=== PATIENT | male | born 1935 | race Caucasian/White ===

== ENCOUNTER 2018-08-30 10:26 | Observation (INO) | payer OTHER ==
[~2018-08-30] VITALS: Ht 165.1 cm; Wt 66.2 kg
[~2018-08-30 10:26] MED LIST: ADULT LOW DOSE81 MG PO; AMLODIPINE BESYL5 MG PO; APAP500 PO; B-122500 MCG PO; CALCIUM 600 +1 EAC1 PO; COLACE100 MG PO; FLOMAX0.4 MG PO; HYDROCODON-ACE1 EAC8 PO; IRBESARTAN-HCT1 EACH PO; IRON325 PO; MUCINEX TA600 MG/TA2 PO; MUCINEX600 MG PO; MULTIVITAMINS PO; PREDNISONE 10 M10 MG PO; PREDNISONE 5 MG5 M1 PO; PROAIR HFA8.5 GM INH; PROMETHAZI6.25 MG/2 PO; PROSCAR 5MG TABL5 MG PO; SIMVASTATIN20 MG PO; SINGULAIR 10 MG10 M1 PO; SYMBICORT160 MCG/4. INH; TAMIFLU PO; VITAMINC500 PO
[2018-08-30] MEDS ORDERED: COMBIVENT RESPIM4 GM INH (11:09)
[2018-08-30] MEDS ORDERED: FLOVENT HFA 4444 MCG INH (11:10)
[2018-08-30] MEDS ORDERED: VENTOLIN HFA 1818 GM INH (11:11)
[2018-08-30] MEDS ORDERED: OXYBUTYNIN 5 MG5 M2 PO (11:12)
[2018-08-30 11:14] VITALS: BP 149/45
[2018-08-30 11:14] LABS: ABSOLUTE NEUTROPHILS 3.4 thou/uL (1.4-8.2); BASOPHILS 0.7 % (0.0-2.0); EOSINOPHILS 0.9 % (0.0-3.0); HEMATOCRIT 30.6 % (42.0-52.0); HEMOGLOBIN 10.4 gm/dL (14.0-18.0); LYMPHOCYTES 21.2 % (24.0-44.0); MCH 30.1 pg (26.0-34.0); MCHC 33.9 g/dL (28.0-37.0); MCV 88.7 fL (80.0-100.0); POLYS 66.2 % (36.0-66.0); RBC 3.45 mil/uL (4.50-6.00); RDW 14.1 % (10.5-14.5); WBC 5.2 thou/uL (4.0-11.0)
[2018-08-30 11:22] LABS: CALCIUM 9.6 mg/dL (8.5-10.1); CREATININE 1.7 mg/dL (0.7-1.3); POTASSIUM 5.1 mmol/L (3.5-5.1)
[2018-08-30 11:27] LABS: APTT 27.3 Seconds (24.5-32.8); PROTIME 10.7 Seconds (9.3-11.4)
[2018-08-30 11:28] LABS: ALBUMIN 3.5 g/dL (3.4-5.0); TOTAL BILIRUBIN 0.3 mg/dL (<0.1-1.0); TOTAL PROTEIN 6.9 g/dL (6.4-8.2)
[2018-08-30 11:46] LABS: PLATELET COUNT 186 thou/uL (150-400)
[2018-08-30 19:45] VITALS: BP 124/53
[2018-08-31 00:31] VITALS: BP 145/63
--- NOTE | 2018-08-31 01:58 | NUR ---
ASSESSMENT DOCUMENTED.PT S/P PACEMAKER PLACEMENT.VSS.A/OX4.PT BROTHER AT BEDSIDE.LEFT CHEST PACEMAKER SITE INTACT.IMMOBILIZER IN PLACE.REVIEWED ACTIVITY RESTRICTION WITH PT AND BROTHER,VOICED UNDERSTANDING.REVIEWED POC WELL.ALL PT'S AND FAMILY QUESTIONS/ CONCERNS ADDRESSED.ON MONITOR V-PACED TO AV PACED ON MONITOR.PAIN CONTROLLED WITH PAIN MED.VOIDING ADEQUATELY VIA URINAL.PT ON BEDREST.MAY DISCHARGE LATER TODAY.WILL CONTINUE TO MONITOR PER POC.
[2018-08-31 05:40] VITALS: BP 146/55
[2018-08-31 09:18] VITALS: BP 133/51
[2018-08-31 09:56] VITALS: BP 133/51
--- NOTE | 2018-08-31 11:05 | NUR ---
ASSESSMENTS DOCUMENTED. PACEMAKER INTEROGATED THIS AM. CHEST XRAY DONE. PACED ON THE MONITOR. LEFT CHEST INCISION SITE OPEN TO AIR. HEALING. VSS. DENIES ANY PAIN OR DISCOMFORT. AMBULATED AROUND UNIT - TOLERATED WELL. DISCHARGE ORDERS RECIEVED. DISCUSSED WITH PT AND SPOUSE ABOUT POST PACEMAKER PRECAUTIONS. SENT HOME WITH INSTRUCTIONS. AWARE OF FOLLOW UP APPOINTMENTS. IV TAKEN OUT. TELE MONITOR OFF.
== END 2018-08-31 11:51 | disposition home or self-care (01) ==
LOC: CATH 10:26 → 2N 17:14 → ENTRNSPT 08-31 11:42 → EDTRNSPTSTS 08-31 11:45 → 2N 08-31 11:51
PROVIDERS: ADMIT Internal Medicine Cardiovascular Disease
DX: I44.1 Atrioventricular block, second degree (principal); I44.2 Atrioventricular block, complete; I10 Essential (primary) hypertension; Z90.5 Acquired absence of kidney
CPT/HCPCS: 62110; 62900; 70005

== ENCOUNTER → 2018-09-29 | Outpatient (CLI) | payer OTHER ==
[~2018-09-29] MED LIST changes: +COMBIVENT RESPIM4 GM INH; +FLOVENT HFA 4444 MCG INH; +OXYBUTYNIN 5 MG5 M2 PO; +VENTOLIN HFA 1818 GM INH
== END ==
LOC: RAD 18:23
DX: J98.4 Other disorders of lung (principal); Z95.0 Presence of cardiac pacemaker

== ENCOUNTER → 2019-12-01 | Outpatient (CLI) | payer OTHER | LOC: SJCVC 13:31 | PROVIDERS: ATTEND Internal Medicine | DX: Z45.018 Encounter for adjustment and management of other part of cardiac pacemaker (principal); R94.31 Abnormal electrocardiogram [ECG] [EKG]; I10 Essential (primary) hypertension; E78.5 Hyperlipidemia, unspecified; C34.11 Malignant neoplasm of upper lobe, right bronchus or lung; C64.9 Malignant neoplasm of unspecified kidney, except renal pelvis; J43.9 Emphysema, unspecified; Z79.899 Other long term (current) drug therapy; Z87.891 Personal history of nicotine dependence ==

== ENCOUNTER → 2020-07-26 | Outpatient (CLI) | payer OTHER | LOC: SJCVC 13:26 | PROVIDERS: ATTEND Internal Medicine | DX: R94.31 Abnormal electrocardiogram [ECG] [EKG] (principal); I10 Essential (primary) hypertension; E78.5 Hyperlipidemia, unspecified; J43.9 Emphysema, unspecified; J45.909 Unspecified asthma, uncomplicated; Z85.118 Personal history of other malignant neoplasm of bronchus and lung; Z92.3 Personal history of irradiation; Z85.53 Personal history of malignant neoplasm of renal pelvis; Z95.0 Presence of cardiac pacemaker; Z87.891 Personal history of nicotine dependence; Z79.899 Other long term (current) drug therapy ==

== ENCOUNTER → 2021-01-23 | Outpatient (CLI) | payer OTHER | LOC: SJCVC 13:39 | PROVIDERS: ATTEND Internal Medicine | DX: R94.31 Abnormal electrocardiogram [ECG] [EKG] (principal); I49.3 Ventricular premature depolarization; I10 Essential (primary) hypertension; E78.5 Hyperlipidemia, unspecified; J45.909 Unspecified asthma, uncomplicated; C34.11 Malignant neoplasm of upper lobe, right bronchus or lung; J43.9 Emphysema, unspecified; C64.9 Malignant neoplasm of unspecified kidney, except renal pelvis; Z95.0 Presence of cardiac pacemaker; Z87.891 Personal history of nicotine dependence; Z79.899 Other long term (current) drug therapy ==

== ENCOUNTER → 2021-04-10 | Outpatient (CLI) | payer OTHER | LOC: SJCVC 14:14 | PROVIDERS: ATTEND Internal Medicine | DX: R94.31 Abnormal electrocardiogram [ECG] [EKG] (principal); I49.3 Ventricular premature depolarization; I48.0 Paroxysmal atrial fibrillation; I10 Essential (primary) hypertension; E78.5 Hyperlipidemia, unspecified; C34.11 Malignant neoplasm of upper lobe, right bronchus or lung; J43.9 Emphysema, unspecified; Z95.0 Presence of cardiac pacemaker; C64.9 Malignant neoplasm of unspecified kidney, except renal pelvis; Z87.891 Personal history of nicotine dependence; Z79.899 Other long term (current) drug therapy ==